=== PATIENT | male | born 1955 | race Caucasian/White ===

== ENCOUNTER → 2021-04-23 13:42 | Outpatient (CLI) | payer MEDICARE, SELFPAY ==
--- NOTE | 2021-04-23 13:57 | XR_ITS ---
FINAL REPORT CLINICAL HISTORY: pain, charcot left foot. weightbearing views for dr Leonardo. FINDINGS: LEFT ANKLE 3 views were obtained. There is no acute fracture or dislocation. There are mild degenerative changes. There are vascular calcifications. There is a calcification in the region of the posterior plantar aponeurosis. IMPRESSION: Mild degenerative change with no acute bony abnormality. Reviewed, Interpreted and Dictated by Emiliano Calles III, MD Transcribed by Lora Dominguez Authenticated by Emiliano Calles III, MD on 04/23/2021 03:59:51 PM [facility]
--- NOTE | 2021-04-23 13:57 | XR_ITS ---
FINAL REPORT CLINICAL HISTORY: left foot charcot. Left foot pain. Weightbearing views for Dr Leonardo. FINDINGS: LEFT FOOT Three weight-bearing views of the left foot demonstrate no acute fracture or dislocation. There are severe degenerative changes of the midfoot which likely represent neuropathic osteoarthropathy. Multiple calcifications are seen in this region. There is chronic deformity of the navicular with subluxation. There is inferior subluxation of the cuboid. There are mild degenerative changes elsewhere in the foot. There is a small calcaneal spur. The bones are osteopenic. There are mild vascular calcifications. IMPRESSION: Significant degenerative change and deformity of the midfoot consistent with neuropathic osteoarthropathy. No acute bony abnormality. Mild vascular calcifications. Mild degenerative change elsewhere. Reviewed, Interpreted and Dictated by Emiliano Calles III, MD Transcribed by Lora Dominguez Authenticated by Emiliano Calles III, MD on 04/23/2021 03:59:53 PM [facility]
== END ==
PROVIDERS: PCP Nurse Practitioner Adult Health; Visit Provider Podiatrist
DX: M79.672 Pain in left foot (principal); M25.572 Pain in left ankle and joints of left foot
CPT/HCPCS: 73610; 73630

== ENCOUNTER → 2021-04-30 08:07 | Outpatient (CLI) | payer MEDICARE, SELFPAY ==
--- NOTE | 2021-04-30 08:16 | XR_ITS ---
FINAL REPORT CLINICAL HISTORY: charcot joint COMPARISON: April 23, 2021 FINDINGS: LEFT ANKLE: Three views of the left ankle were obtained. There is no acute fracture or dislocation. There is sclerosis and disorganization of the intertarsal joints consistent with Charcot arthropathy. There is no soft tissue abnormality. IMPRESSION: Charcot arthropathy. Reviewed, Interpreted and Dictated by Eleuterio Zuniga MD Transcribed by Pino Gill Authenticated by Eleuterio Zuniga MD on 04/30/2021 11:33:07 AM [facility]
--- NOTE | 2021-04-30 08:16 | XR_ITS ---
FINAL REPORT CLINICAL HISTORY: charcot joint COMPARISON: April 23, 2021 FINDINGS: 3 views of the left foot were obtained. There is no acute fracture or dislocation. Again seen are hypertrophic changes of the intertarsal joints. There is subluxation and disorganization of the intertarsal joints particularly at the medial hindfoot. Findings are similar to the prior exam and consistent with Charcot arthropathy. The soft tissues are unremarkable. IMPRESSION: Charcot arthropathy, similar to prior. Reviewed, Interpreted and Dictated by Eleuterio Zuniga MD Transcribed by Pino Gill Authenticated by Eleuterio Zuniga MD on 04/30/2021 11:33:[address] [facility]
--- NOTE | 2021-04-30 09:23 | US_ITS ---
FINAL REPORT CLINICAL HISTORY: decreased pulses FINDINGS: Ankle brachial indices was obtained. The left BRITTANIE measures 0.5 which is slightly depressed and concerning for arterial occlusive disease. IMPRESSION: Findings concerning for arterial occlusive disease. Consider CTA or catheter directed angiography to further evaluate. Reviewed, Interpreted and Dictated by Eleuterio Zuniga MD Transcribed by Lexus Love Authenticated by Eleuterio Zuniga MD on 04/30/2021 12:41:44 PM [facility]
== END ==
PROVIDERS: PCP Nurse Practitioner Adult Health; Visit Provider Podiatrist
DX: E11.610 Type 2 diabetes mellitus with diabetic neuropathic arthropathy (principal); R09.89 Other specified symptoms and signs involving the circulatory and respiratory systems; Z79.4 Long term (current) use of insulin
CPT/HCPCS: 73610; 73630; 93923

== ENCOUNTER → 2021-05-05 14:58 | Outpatient (CLI) | payer MEDICARE, SELFPAY ==
[2021-05-05 15:37] LABS: Basophils # 0.1 K/mm3 (0-0.2); Basophils % 0.7 % (0.1-2.0); Eosinophils # 0.4 K/mm3 (0.0-0.4); Eosinophils % 3.2 % (0.1-12.0); Hematocrit 30.4 % (42.0-52.0); Hemoglobin 9.9 g/dL (14.1-18.0); Lymphocytes # 1.7 K/mm3 (0.7-4.5); Lymphocytes % 13.8 % (10-50); Mean Corpuscular HGB Conc 32.7 g/dL (31.8-35.4); Mean Corpuscular Hemoglobin 35.4 pg (27.0-31.2); Mean Corpuscular Volume 108.2 fl (80-94); Mean Platelet Volume 8.5 fl (7.4-10.4); Monocytes # 0.6 K/mm3 (0.1-1.0); Monocytes % 5.3 % (1.7-9.3); Neutrophils # 9.2 K/mm3 (1.8-7.8); Neutrophils % 76.9 % (37.0-80.0); Platelet Count 313 K/mm3 (142-424); Red Blood Count 2.81 M/mm3 (4.60-6.20); Red Cell Distribution Width 18.6 % (11.5-17.5); White Blood Count 11.9 K/mm3 (4.8-10.8)
[2021-05-05 16:33] LABS: Chloride 96 mmol/L (98-107); Potassium 3.1 mmoL/L (3.5-5.1); Sodium 139 mmol/L (136-145)
[2021-05-05 16:36] LABS: Anion Gap 17.1 mEq/L (5-15); Blood Urea Nitrogen 55 mg/dl (9-20); Carbon Dioxide 29 mmol/L (22.0-30.0); Estimated Glomerular Filt Rate 4 ml/min (>60); GFR (African American) 5 ML/MIN (>60)
[2021-05-05 16:37] LABS: Calcium 8.5 mg/dl (8.4-10.2); Glucose 123 mg/dl (74-100)
== END ==
PROVIDERS: PCP Nurse Practitioner Adult Health; Visit Provider Physician Assistant
DX: Z01.812 Encounter for preprocedural laboratory examination; Z11.52 Encounter for screening for COVID-19; E08.621 Diabetes mellitus due to underlying condition with foot ulcer; M79.673 Pain in unspecified foot; R09.89 Other specified symptoms and signs involving the circulatory and respiratory systems; R68.89 Other general symptoms and signs; Z89.511 Acquired absence of right leg below knee; Z92.89 Personal history of other medical treatment; Z98.890 Other specified postprocedural states; Z79.4 Long term (current) use of insulin
CPT/HCPCS: 36415; 80048; 85025; C9803; U0003; U0005

== ENCOUNTER 2021-05-07 08:09 | Day surgery (SDC) | payer MEDICARE, SELFPAY ==
[2021-05-07] VITALS (15 sets, daily range): BP systolic 118–158; BP diastolic 41–76; PULSE 69–85; RESP 16–19; TEMP 36.9; O2SAT 10–100; BMI 36.3
--- NOTE | 2021-05-07 07:04 | IR_ITS ---
APPROVED REPORT Patient Location: Outpatient Technical Training Specialist: MALINI Roca RT (R) PROCEDURES Right radial arterial access Catheter placed into the left external iliac artery Left external iliac artery antegrade angiogram with unilateral runoff to the left foot Catheter placed in the abdominal aorta Abdominal aortography Bare-metal stent deployment to the left external iliac artery extending into the left common femoral artery Angioplasty to the proximal and mid left superficial femoral artery INDICATION Peripheral artery disease, Preoperative evaluation and treatment for upcoming lower extremity surgery, Abnormal BRITTANIE, Informed consent was obtained prior to the procedure. COMPLICATIONS None Estimated Blood Loss: Less than 10 mls TECHNIQUE 1% lidocaine used anesthetize right anterior aspect of the wrist. The right radial artery was accessed via the Seldinger technique and a 6 [place] hydrophilic sheath was placed in the right radial artery. An arterial cocktail using lidocaine heparin verapamil nitroglycerin were administered intra-arterially. A PV multi curve was then advanced under fluoroscopic guidance into the left external iliac artery where antegrade angiography was performed with unilateral runoff to the left foot. Catheter was then pulled back to the abdominal aorta where abdominal aortography was performed. Following this therapeutic heparin was administered and the catheter was placed back into the left common iliac artery where a long advantage wire was then advanced under fluoroscopic guidance into the left superficial femoral artery. The sheath and catheter were exchanged for a 119 mm 6 [place] hydrophilic sheath. Following this an 8 mm x 40 mm EV 3 self-expanding stent was deployed in the proximal left common femoral artery extending back to the left external iliac artery. An 8 mm x 40 mm balloon was then advanced and deployed at 12 julius to post dilate. Excellent angiographic results were obtained. Following this the advantage wire was pushed into the superficial femoral artery and then used to advance through the chronic occlusion. A 5 mm x 150 mm balloon was then advanced and deployed in the ostial proximal mid SFA after the wire would not go beyond a heavily calcified area in Francisco's canal. The balloon was removed and a fresh 5 mm x 80 mm balloon was then advanced into the superficial femoral artery. The wire was then manipulated several times however the artery was hitting this dense calcified area in Francisco's canal and I felt further aggressive manipulation would run the risk of blocking off the pregeniculate collaterals which supplied the left foot. At this point it was decided to abandon the procedure due to the dense calcification and inability to recanalize the popliteal artery. At this point angiography demonstrated there is excellent inline flow into the left lower extremity all being supplied by the pregeniculate collaterals. This point the apparatus was removed the sheath was removed good hemostasis was achieved using TR banding patient was transferred to postop holding in stable condition ANGIOGRAPHIC RESULTS The infrarenal abdominal aorta is patent with mild atheromatous plaque creating 10 to 20% stenoses Right common iliac artery is patent as is a large right internal iliac artery. The internal iliac artery has an ostial 90% stenosis. The right external iliac artery is proximally occluded and then reconstitutes at the right common femoral artery via collaterals from the internal iliac artery. Left common iliac artery has mild atheromatous plaque of 20 to 30%. The stent is then identified in the left external iliac artery which is widely patent. The left
--- NOTE | 2021-05-07 13:25 | SUR.PHASEII ---
1320- 3ml air removed, no bleeding noted
--- NOTE | 2021-05-07 13:41 | SUR.PHASEII ---
1335- 3ml air removed - no bleeding noted
--- NOTE | 2021-05-07 13:46 | HMH.PHACLD ---
Tino Ramirez has received discharge medication counseling on the following medications: PATIENT RECEIVED PERIPHERAL STENT. PATIENT IS CURRENTLY TAKING ASPIRIN AND ATORVASTATIN. STARTING PLAVIX WELL.
--- NOTE | 2021-05-07 13:53 | SUR.PHASEII ---
1350- 2.5 ml air removed, no bleeding or bruising noted
--- NOTE | 2021-05-07 14:07 | SUR.PHASEII ---
1405- 2.5ml air removed - no bleeding or bruising noted
--- NOTE | 2021-05-07 14:31 | SUR.PHASEII ---
2.5 ml air removed from tracelet @ 2644
--- NOTE | 2021-05-07 14:39 | SUR.PHASEII ---
1420 - 2.5 ml air removed from tracelet @ this time, no s/s of bleeding or hematoma 1435 - 2.5 ml air removed from tracelet @ this time, no s/s of bleeding. Tracelet removed @ this time as well. Telfa/tegaderm placed on site. Pt is able to move fingers freely, extremity warm to touch, cap refill <3 sec. Denies pain.
[2021-05-07 15:24] LABS: CATHL Activated Clotting Time 392 SEC (74-125)
== END 2021-05-07 15:19 | disposition home or self-care (01) ==
PROVIDERS: PCP Nurse Practitioner Adult Health; Visit Provider Internal Medicine
DX: E11.610 Type 2 diabetes mellitus with diabetic neuropathic arthropathy; M79.672 Pain in left foot; R09.89 Other specified symptoms and signs involving the circulatory and respiratory systems; Z89.511 Acquired absence of right leg below knee; Z79.4 Long term (current) use of insulin; I77.1 Stricture of artery; I25.810 Atherosclerosis of coronary artery bypass graft(s) without angina pectoris; I25.10 Atherosclerotic heart disease of native coronary artery without angina pectoris; N18.6 End stage renal disease; I12.0 Hypertensive chronic kidney disease with stage 5 chronic kidney disease or end stage renal disease; E11.22 Type 2 diabetes mellitus with diabetic chronic kidney disease; Z95.1 Presence of aortocoronary bypass graft; Z99.2 Dependence on renal dialysis; I70.92 Chronic total occlusion of artery of the extremities; I70.202 Unspecified atherosclerosis of native arteries of extremities, left leg
CPT/HCPCS: 37221; 37224; 85347; 99152; 99153; C1725; C1760; C1769; C1876; J1644; Q9966

== ENCOUNTER → 2021-05-15 14:08 | Outpatient (CLI) | payer MEDICARE, SELFPAY ==
--- NOTE | 2021-05-15 14:10 | CA_ITS ---
FINAL REPORT CLINICAL HISTORY: R09.89 - Other specified symptoms and signs involving the... FINDINGS: Duplex scan of the right radial artery was obtained. The right radial artery is patent. There is no evidence of pseudoaneurysm. IMPRESSION: No evidence for pseudoaneurysm. Reviewed, Interpreted and Dictated by Emiliano Calles III, MD Transcribed by Lexus Love Authenticated by Emiliano Calles III, MD on 05/15/2021 04:28:08 PM [facility]
== END ==
PROVIDERS: PCP Nurse Practitioner Adult Health; Visit Provider Physician Assistant
DX: I72.9 Aneurysm of unspecified site (principal); L53.9 Erythematous condition, unspecified; R09.89 Other specified symptoms and signs involving the circulatory and respiratory systems
CPT/HCPCS: 93931

== ENCOUNTER → 2021-05-19 15:52 | Outpatient (CLI) | payer MEDICARE, SELFPAY ==
[2021-05-19 16:45] LABS: Basophils # 0.1 K/mm3 (0-0.2); Eosinophils # 0.7 K/mm3 (0.0-0.4); Eosinophils % 5.2 % (0.1-12.0); Hemoglobin 9.7 g/dL (14.1-18.0); Lymphocytes # 1.5 K/mm3 (0.7-4.5); Lymphocytes % 12.2 % (10-50); Mean Corpuscular HGB Conc 32.3 g/dL (31.8-35.4); Mean Corpuscular Hemoglobin 34.9 pg (27.0-31.2); Mean Corpuscular Volume 108.2 fl (80-94); Monocytes # 0.6 K/mm3 (0.1-1.0); Monocytes % 4.8 % (1.7-9.3); Neutrophils # 9.6 K/mm3 (1.8-7.8); Neutrophils % 76.9 % (37.0-80.0); Platelet Count 344 K/mm3 (142-424); Red Blood Count 2.77 M/mm3 (4.60-6.20); Red Cell Distribution Width 18.9 % (11.5-17.5); White Blood Count 12.4 K/mm3 (4.8-10.8)
[2021-05-19 16:54] LABS: Chloride 96 mmol/L (98-107)
[2021-05-19 16:55] LABS: Sodium 135 mmol/L (136-145)
[2021-05-19 16:57] LABS: Alanine Aminotransferase 18 U/L (12-78); Albumin Level 3.5 g/dl (3.5-5.0); Albumin/Globulin Ratio 1.2 (1.1-1.8); Alkaline Phosphatase 81 U/L (38-126); Aspartate Amino Transferase 27 U/L (17-59); Bilirubin,Total 0.4 mg/dl (0.2-1.3); Blood Urea Nitrogen 44 mg/dl (9-20); Carbon Dioxide 29 mmol/L (22.0-30.0); Estimated Glomerular Filt Rate 4 ml/min (>60); GFR (African American) 5 ML/MIN (>60); Total Protein,Serum 6.5 g/dl (6.3-8.2)
[2021-05-19 17:01] LABS: Anion Gap 13.5 mEq/L (5-15); Potassium 3.5 mmoL/L (3.5-5.1)
[2021-05-19 17:04] LABS: C-Reactive Protein 44.1 mg/L (0-4)
[2021-05-19 17:05] LABS: Calcium 9.1 mg/dl (8.4-10.2); Glucose 109 mg/dl (74-100)
[2021-05-19 17:38] LABS: Erythrocyte Sedimentation Rate > 140 mm/hr (0-20)
== END ==
PROVIDERS: PCP Nurse Practitioner Adult Health; Visit Provider Podiatrist
DX: Z01.812 Encounter for preprocedural laboratory examination (principal); Z11.52 Encounter for screening for COVID-19; E11.610 Type 2 diabetes mellitus with diabetic neuropathic arthropathy; Z79.4 Long term (current) use of insulin
CPT/HCPCS: 36415; 80053; 85025; 85651; 86140; C9803; U0003; U0005